=== PATIENT | female | born 1940 | race Caucasian/White ===

== ENCOUNTER → 2018-09-27 09:40 | Outpatient (CLI) | payer MEDICARE, OTHER, SELFPAY ==
--- NOTE | 2018-09-27 | DI.ECHO.S_ITS ---
[facility] +---------+ : : [address] [place] : : : : [id number] : : : : Phone: [phone]---------+ Echocardiogram Report + + :Name: GELA FRIAS Study Date: 09/27/2018 Height: 62 in : :[facility] Exam Location: [facility] Weight: 137 lb : : Gender: Female BSA: 1.6 m2 : :: 1940 Age: 78 yrs BP: 140/85 mmHg: :Reason For Study: Aortic valve regurgitation : :Ordering Physician: Ji : :Terrence Performed By: Malissa Page : + + Interpretation Summary The left ventricle is normal in size, wall thickness, and systolic function without any focal wall motion abnormalities with the ejection fraction visually estimated to be 55-60% and appears unchanged compared to the previous study. Diastolic parameters suggest probable normal left ventricular diastolic function and normal filling pressures. There has been no significant change since the previous study. The right ventricle is normal size and right ventricular systolic function is at the lower limits of normal but appears unchanged compared to the previous study. The right ventricular systolic pressure is estimated to be at least 26 mmHg based on an estimated right atrial pressure of 3 mm Hg, and is likely unchanged compared to the previous study. The left atrium is borderline dilated while right atrial size is normal, and both are unchanged compared to the previous study. There is mild to moderate aortic regurgitation, mild to moderate tricuspid regurgitation, and mild pulmonic regurgitation that are all unchanged compared to the previous study. The aortic root is borderline dilated and measures slightly larger compared to the previous study. The ascending aorta is mildly enlarged but is unchanged compared to the previous study. Procedure: A two-dimensional transthoracic echocardiogram with color flow and Doppler was performed. The study quality was technically adequate. Comparison is made with the echocardiogram of 06/29/2014. The patient was in normal sinus rhythm during the exam. Left Ventricle: The left ventricle is normal in size, wall thickness, and systolic function without any focal wall motion abnormalities. The ejection fraction is estimated to be 55-60%. This is unchanged compared to the previous study. Diastolic parameters suggest probable normal left ventricular diastolic function and normal filling pressures. There has been no significant change since the previous study. Right Ventricle: The right ventricle is normal size. Right ventricular systolic function is at the lower limits of normal. This is unchanged compared to the previous study. Atria: The left atrium is borderline dilated. Right atrial size is normal. This is unchanged compared to the previous study. There is no Doppler evidence for an interatrial shunt. Mitral Valve: The mitral valve leaflets appear borderline thickened, but open well. There is trace mitral regurgitation. This is unchanged compared to the previous study. Aortic Valve: The aortic valve is trileaflet. The aortic valve opens well. There is mild to moderate aortic regurgitation. This is unchanged compared to the previous study. Tricuspid Valve: The tricuspid valve is normal in structure and function. There is mild to moderate tricuspid regurgitation. The right ventricular systolic pressure is estimated to be at least 26 mmHg based on an estimated right atrial pressure of 3 mm Hg. This is unchanged compared to the previous study. Pulmonic Valve: The pulmonic valve is not well seen, but is grossly normal. There is mild pulmonic regurgitation. This is unchanged compared to the previous study. Great Vessels: The aortic root is borderline dilated. This is slightly large compared to the previous study. The ascending aorta is mildly enlarged. The aortic arch is normal in size. This is unchanged compared to the previous study. The pulmonary artery is not well visualized, but is probably normal size. The IVC is of normal diameter and collapses greater than 50% with a sniff. This suggests a low right atrial pressure of 3 mm Hg. Pericardium/ Pleura There is no pericardial effusion. There is no pleural effusion. MMode/2D Measurements & Calculations LVIDd: 4.8 cm LVOT diam: 2.1 cm LVIDs: 3.3 cm Ao root diam: 3.6 cm FS: 31.1 % asc Aorta Diam: 3.5 cm EPSS: 0.32 cm Ao Arch Diam (Prox Trans): 2.7 cm IVSd: 0.88 cm LVPWd: 0.68 cm LV palumbo. diameter/BSA (cm/m^2): 3.0 LV sys. diameter/BSA (cm/m^2): 2.1 LA A2 area: 21.8 cm2 RA long axis: 4.4 cm LA A4 area: 14.5 cm2 RA area: 14.2 cm2 LA length (vol): 4.9 cm RA vol: 38.8 ml LA vol: 54.8 ml RA : 23.8 ml/m2 LA vol index: 33.6 ml/m2 IVC diam: 2.3 cm RVD1 (basal): 3.2 cm TAPSE: 2.1 cm Doppler Measurements & Calculations Ao V2 max: 136.7 cm/sec LVOT Max Cristino: 76.8 cm/sec Ao V2 mean: 89.9 cm/sec LV V1 max P.4 mmHg Ao max P.5 mmHg LV V1 VTI: 18.1 cm Ao mean P.7 mmHg BRODY(I,D): 2.0 cm2 Ao V2 VTI: 30.4 cm BRODY(V,D): 1.9 cm2 sev ratio: 0.59 BRODY indexed to BSA (cm^2/m^2): 1.3 AI P1/2t: 665.9 msec AI dec slope: 208.4 cm/sec2 MV E max cristino: 76.2 cm/sec TR max cristino: 241.4 cm/sec MV A max cristino: 83.6 cm/sec TR max P.3 mmHg MV E/A: 0.91 PA V2 max: 52.9 cm/sec Med Peak E' Cristino: 6.1 cm/sec PA V2 mean: 39.3 cm/sec E/E' med: 12.5 PA mean P.67 mmHg Lat Peak E' Cristino: 6.5 cm/sec PA Accel Time: 0.13 sec E/E' lat: 11.7 E/e' average: 12.1 MV dec time: 0.22 sec MV P1/2t: 65.2 msec MV P1/2t max cristino: 77.3 cm/sec SV(LVOT): 62.0 ml MVA(P1/2t): 3.4 cm2 Reading Physician:PM
[2018-09-27 10:50] LABS: Alanine Aminotransferase 29 IU/L (9-52); Albumin 4.6 g/dL (3.5-5.0); Albumin Globulin Ratio 1.5 (1.0-2.8); Alkaline Phosphatase 66 U/L (38-126); Aspartate Aminotransferase 27 IU/L (14-36); Bilirubin Total 0.8 mg/dL (0.2-1.3); Blood Urea Nitrogen 18 mg/dL (7-17); Calcium 9.3 mg/dL (8.4-10.2); Carbon Dioxide 28 mmol/L (22-32); Chloride 106 mmol/L (98-107); Estimated Glomerular Filt Rate > 60.0 mL/min (>60); Glucose 96 mg/dL (80-110); HEMOLYSIS < 15 (0-50); Potassium 4.6 mmol/L (3.4-5.1); Sodium 141 mmol/L (137-145); Total Protein 7.6 g/dL (6.3-8.2)
[2018-10-04 13:03] LABS: Lipoprofile NMR SEE SEPERATE REPORT
== END ==
PROVIDERS: Visit Provider Specialist
DX: I08.2 Rheumatic disorders of both aortic and tricuspid valves (principal); I77.89 Other specified disorders of arteries and arterioles; E78.2 Mixed hyperlipidemia
CPT/HCPCS: 36415; 80053; 83704; C8929; Q9957

== ENCOUNTER → 2019-11-10 11:22 | Outpatient (CLI) | payer MEDICARE, OTHER, SELFPAY ==
--- NOTE | 2019-11-10 | DI.US.S_ITS ---
PROCEDURE: US CAROTID DOPPLER BI INDICATIONS: STENOSIS OF RIGHT CAROTID ARTERY TECHNIQUE: Color and pulse Doppler interrogation was performed of both carotid systems, with image documentation and velocity measurements. COMPARISON: None. FINDINGS: Stenosis calculations are based on SRU (Society of Radiologists in Ultrasound) criteria. Right side: Brachial blood pressure: Not measured Common carotid artery peak systolic velocity: 64 cm/sec. Internal carotid artery peak systolic velocity: 86 cm/sec. Internal carotid artery end diastolic velocity: 35 cm/sec. External carotid artery peak systolic velocity: 60 cm/sec. ICA/CCA peak systolic ratio: 1.3 Eugene scale imaging description: Atherosclerotic changes can be seen. Percent internal carotid artery stenosis: Less than 50% by velocity criteria Vertebral artery: Flow direction is antegrade. Left side: Brachial blood pressure: Not measured Common carotid artery peak systolic velocity: 65 cm/sec. Internal carotid artery peak systolic velocity: 146 cm/sec. Internal carotid artery end diastolic velocity: 65 cm/sec. External carotid artery peak systolic velocity: 55 cm/sec. ICA/CCA peak systolic ratio: 2.2 Eugene scale imaging description: Atherosclerotic changes are noted. The left internal carotid artery is noted to be tortuous. Percent internal carotid artery stenosis: 50-69% by velocity criteria Vertebral artery: Flow direction is antegrade. IMPRESSION: By velocity criteria, there is a moderate stenosis (between 50 and 69% stenosis) within the left proximal internal carotid artery. The true degree of stenosis is felt most likely to be at the lower end of this range. Dictated by: Chandan Cabrera M.D. on 11/11/2019 at 11:26 Approved by: Chandan Cabrera M.D. on 11/11/2019 at 11:27
[2019-11-10 13:01] LABS: Alanine Aminotransferase 25 IU/L (<35); Albumin 4.5 g/dL (3.5-5.0); Albumin Globulin Ratio 1.3 (1.0-2.8); Alkaline Phosphatase 80 U/L (38-126); Aspartate Aminotransferase 35 IU/L (14-36); BUN Creatinine Ratio 25.8 (6-22); Bilirubin Total 0.7 mg/dL (0.2-1.3); Blood Urea Nitrogen 17 mg/dL (7-17); Calcium 9.9 mg/dL (8.4-10.2); Carbon Dioxide 30 mmol/L (22-32); Chloride 102 mmol/L (98-107); Estimated Glomerular Filt Rate > 60.0 mL/min (>60); Globulin 3.4 g/dL (1.7-4.1); Glucose 102 mg/dL (80-110); HEMOLYSIS < 15 (0-50); Magnesium 2.3 mg/dL (1.6-2.3); Potassium 4.2 mmol/L (3.4-5.1); Sodium 139 mmol/L (137-145); Total Protein 7.9 g/dL (6.3-8.2)
[2019-11-12 08:08] LABS: Cholesterol, Total 165 mg/dL (100-199); HDL-Cholesterol 74 mg/dL (>39); HDL-Particle (Total) 49.7 umol/L (>=30.5); Historical Reading Comment: (.); LDL Particle 959 nmol/L (<1000); LDL Size 21.3 nm (>20.5); LDL-Cholsterol 73 mg/dL (0-99); LP-IR Score 33 (<=45); Small LDL- Particle 503 nmol/L (<=527); Triglycerides 91 mg/dL (0-149)
== END ==
PROVIDERS: Referring Provider Specialist; Visit Provider Specialist
DX: I65.23 Occlusion and stenosis of bilateral carotid arteries (principal); E78.2 Mixed hyperlipidemia; R00.2 Palpitations; I10 Essential (primary) hypertension
CPT/HCPCS: 36415; 80053; 80061; 83704; 83735; 93880

== ENCOUNTER → 2020-10-25 12:04 | Outpatient (CLI) | payer MEDICARE, OTHER, SELFPAY ==
--- NOTE | 2020-10-25 12:07 | DI.US.S_ITS ---
PROCEDURE: US CAROTID DOPPLER BI INDICATIONS: Occlusion and stenosis of left carotid artery TECHNIQUE: Color and pulse Doppler interrogation was performed of both carotid systems, with image documentation and velocity measurements. COMPARISON: [facility], , CAROTID DOPPLER BI, 11/10/2019, 12:11. FINDINGS: Stenosis calculations are based on SRU (Society of Radiologists in Ultrasound) criteria. Right side: Brachial blood pressure: 142/88 mm Hg. Common carotid artery peak systolic velocity: 69 cm/sec. Internal carotid artery peak systolic velocity: 106 cm/sec. Internal carotid artery end diastolic velocity: 43 cm/sec. External carotid artery peak systolic velocity: 68 cm/sec. ICA/CCA peak systolic ratio: 1.5 . Eugene scale imaging description: Mild plaque at the bifurcation Percent internal carotid artery stenosis: Less than 50% . Vertebral artery: Flow direction is antegrade. Left side: Brachial blood pressure: 138/86 mm Hg. Common carotid artery peak systolic velocity: 72 cm/sec. Internal carotid artery peak systolic velocity: 119 cm/sec. Internal carotid artery end diastolic velocity: 42 cm/sec. External carotid artery peak systolic velocity: 75 cm/sec. ICA/CCA peak systolic ratio: 1.7 . Eugene scale imaging description: Mild diffuse plaque at the bifurcation Percent internal carotid artery stenosis: Less than 50% . Vertebral artery: Flow direction is antegrade. IMPRESSION: Bilateral less than 50% ICA stenoses. Dictated by: Blane Velázquez M.D. on 10/25/2020 at 17:30 Approved by: Blane Velázquez M.D. on 10/25/2020 at 17:32
== END ==
PROVIDERS: Referring Provider Specialist; Visit Provider Specialist
DX: I65.23 Occlusion and stenosis of bilateral carotid arteries (principal)
CPT/HCPCS: 93880